=== PATIENT | female | born 1985 | race Caucasian/White ===

== ENCOUNTER 2019-09-25 02:06 | Emergency (ER) | payer MEDICAID, OTHER ==
[~2019-09-25] VITALS: Ht 157.5 cm; Wt 44.9 kg
--- NOTE | 2019-09-25 02:08 | NUR ---
Pt bibself c/o headache x 15 days, "small red spot on head" RR even and unalbored. VSS. MD at bedside for eval. Placed on monitor and pulse ox. VSS.
[2019-09-25] MEDS ORDERED: KETOROLAC TROMETHAMINE INJ 30 MG/ML VIAL ONE (02:29)
[2019-09-25] MEDS ORDERED: KETOROLAC TROMETHAMINE INJ 60 MG/2 ML VIAL IM ONE (02:30)
--- NOTE | 2019-09-25 02:30 | NUR ---
brought to ct
--- NOTE | 2019-09-25 02:58 | NUR ---
Patient discharged to home in stable condition. Written and verbal after care instructions given. Patient verbalizes understanding of instruction and rx. Pt denies pain. VSS.
[2019-09-25 02:59] VITALS: BP 127/72
== END 2019-09-25 03:12 | disposition home or self-care (01) ==
LOC: ER 02:12
DX: D17.0 Benign lipomatous neoplasm of skin and subcutaneous tissue of head, face and neck (principal); R51 Headache
CPT/HCPCS: 70450; 96372; 99284; J1885

== ENCOUNTER → 2019-12-21 | Emergency (ER) | payer MEDICAID ==
[~2019-12-21] VITALS: Ht 162.6 cm; Wt 45.4 kg
[~2019-12-21] MED LIST: IV NS 0.9% 1,000 ML IV ONE; IV NS 0.9% 500 ML BAG IV ONE; ONDANSETRON HCL/PF 4 MG/2 ML VIAL IV ONE; ONDANSETRON HCL/PF 4 MG/2 ML VIAL ONE
[2019-12-21 13:51] LABS: BASOPHILS % (AUTO) 0.4 % (0.0-2.0); EOSINOPHILS % (AUTO) 0.6 % (0.0-6.0); HEMATOCRIT 40 % (33-45); HEMOGLOBIN 13.8 g/dL (11.5-14.8); LYMPHOCYTES # (AUTO) 1.9 /CMM (0.8-4.8); LYMPHOCYTES % (AUTO) 32.8 % (20.0-44.0); MEAN CORPUSCULAR HGB CONC 34 g/dl (31.0-36.0); MEAN CORPUSCULAR VOLUME 88 fL (82-100); MONOCYTES # (AUTO) 0.4 /CMM (0.1-1.30); MONOCYTES % (AUTO) 6.7 % (2.0-12.0); NEUTROPHILS # (AUTO) 3.4 /CMM (1.8-8.9); NEUTROPHILS % (AUTO) 59.5 % (43.0-81.0); PLATELET COUNT (AUTO) 301 /CMM (150-450); RED BLOOD CELL COUNT(AUTO) 4.58 MIL/uL (4.0-5.2); WHITE BLOOD COUNT (AUTO) 5.8 K/uL (4.3-11.0)
--- NOTE | 2019-12-21 13:53 | NUR ---
Patient awake alert maltese speaking she on the phone with her ,obtained LAc heplock blood drawn obtained and send to lab
[2019-12-21 14:00] LABS: CALCIUM, SERUM 9.6 mg/dL (8.5-10.1); CARBON DIOXIDE 25 mmol/L (21-32); CHLORIDE 102 mmol/L (98-107); CREATININE 0.8 mg/dL (0.6-1.3); GLUCOSE 89 mg/dL (74-106); POTASSIUM 4.2 mmol/L (3.5-5.1); SODIUM SERUM 138 mmol/L (136-145); UREA NITROGEN, BLOOD 13 mg/dL (7-18)
[2019-12-21 14:10] LABS: APPEARANCE,URINE Clear (CLEAR); BILIRUBIN,URINE Negative (NEGATIVE); BLOOD, URINE Trace-intact Ery/uL (NEGATIVE); COLOR,URINE Yellow (YELLOW); KETONES,URINE 15 (NEGATIVE); LEUKOCYTE ESTERASE ,URINE Trace (NEGATIVE); NITRITE, URINE Negative (NEGATIVE); PH,URINE 7.5 (5.0-8.0); PROTEIN,URINE Negative (NEGATIVE); UGLUCOSE Negative (NEGATIVE); UROBILINOGEN,URINE 0.2 EU/dL (0.2)
--- NOTE | 2019-12-21 14:10 | NUR ---
Patient requested to removed heplock from LAC complaiof pain noted flushed with Saline remain patient would like to DC and ok to have new heplock RAC obtained
[2019-12-21 14:12] LABS: ACETAMINOPHEN < 2 ug/ml (10-30); ALANINE AMINOTRANSFERASE 24 U/L (12-78); ALBUMIN 4.3 g/dL (3.4-5.0); ALCOHOL, BLOOD < 3 mg/dL (0-0); ALKALINE PHOSPHATASE 54 U/L (46-116); ASPARTATE AMINOTRANSFERASE 20 U/L (15-37); BILIRUBIN,DIRECT 0.2 mg/dL (0.0-0.2); BILIRUBIN,TOTAL 0.6 mg/dL (0.2-1.0); SALICYLATE 0.6 mg/dL (2.8-20.0); TOTAL PROTEIN, SERUM 8.3 g/dL (6.4-8.2)
--- NOTE | 2019-12-21 14:13 | NUR ---
Patient able to ambulated to bathroom and urine obtained and send to lab
[2019-12-21 14:18] LABS: BACTERIA,URINE Few /HPF (None Seen); SQUAMOUS EPITHELIAL CELL,UR Few /HPF (None Seen)
[2019-12-21 14:20] LABS: SERUM AMMONIA < 10 umol/L (11-32)
[2019-12-21 15:31] VITALS: BP 107/59
--- NOTE | 2019-12-21 15:42 | NUR ---
Patient is awake alert no nausea @ thistime noted RAC IV fluids infusing well ,Dc home instruction given agrees to follow up PMD in 1 day verbalized understanding
--- NOTE | 2019-12-21 16:02 | NUR ---
Patient discharged to home in stable condition. Written and verbal after care instructions given. Patient verbalizes understanding of instruction.
--- NOTE | 2019-12-21 16:03 | NUR ---
Patient Heplock RAC removed noted cath intact ,no edema, no pain .
== END | disposition home or self-care (01) ==
LOC: ER 13:25
DX: R10.9 Unspecified abdominal pain (principal); R11.0 Nausea; R19.7 Diarrhea, unspecified; R53.83 Other fatigue; R00.2 Palpitations; I45.10 Unspecified right bundle-branch block
CPT/HCPCS: 36415; 71045; 80048; 80076; 80305; 80307; 80329; 81001; 82140; 84484; 84703; 85025; 93005; 96361; 96374; 99285; G0480; J2405; J7030 ×2; 81000-TC

== ENCOUNTER 2019-12-23 12:32 | Emergency (ER) | payer MEDICAID ==
[~2019-12-23] VITALS: Ht 152.4 cm; Wt 54.4 kg
[2019-12-23] MEDS ORDERED: ONDANSETRON HCL/PF 4 MG/2 ML VIAL ONE (12:59)
[2019-12-23] MEDS ORDERED: MORPHINE SULFATE INJ 4 MG/ML DISP.SYRIN ONE (12:59)
[2019-12-23] MEDS ORDERED: ONDANSETRON HCL/PF 4 MG/2 ML VIAL IVP ONE (13:00)
[2019-12-23] MEDS ORDERED: MORPHINE SULFATE INJ 2 MG/ML DISP.SYRIN IV ONE (13:00)
[2019-12-23 13:11] LABS: BASOPHILS % (AUTO) 0.3 % (0.0-2.0); EOSINOPHILS % (AUTO) 0.4 % (0.0-6.0); HEMATOCRIT 39 % (33-45); LYMPHOCYTES # (AUTO) 1.7 /CMM (0.8-4.8); LYMPHOCYTES % (AUTO) 22.1 % (20.0-44.0); MEAN CORPUSCULAR HGB CONC 34 g/dl (31.0-36.0); MEAN CORPUSCULAR VOLUME 90 fL (82-100); MONOCYTES # (AUTO) 0.5 /CMM (0.1-1.30); NEUTROPHILS # (AUTO) 5.5 /CMM (1.8-8.9); NEUTROPHILS % (AUTO) 71.2 % (43.0-81.0); PLATELET COUNT (AUTO) 290 /CMM (150-450); WHITE BLOOD COUNT (AUTO) 7.7 K/uL (4.3-11.0)
[2019-12-23 13:16] LABS: CALCIUM, SERUM 9.2 mg/dL (8.5-10.1); CREATININE 0.8 mg/dL (0.6-1.3); POTASSIUM 3.6 mmol/L (3.5-5.1)
[2019-12-23 13:16] LABS: APPEARANCE,URINE Clear (CLEAR); BILIRUBIN,URINE Negative (NEGATIVE); BLOOD, URINE Negative Ery/uL (NEGATIVE); COLOR,URINE Yellow (YELLOW); KETONES,URINE 15 (NEGATIVE); LEUKOCYTE ESTERASE ,URINE Negative (NEGATIVE); NITRITE, URINE Negative (NEGATIVE); PH,URINE 7.5 (5.0-8.0); PROTEIN,URINE Negative (NEGATIVE); UGLUCOSE Negative (NEGATIVE); UROBILINOGEN,URINE 0.2 EU/dL (0.2)
[2019-12-23 13:19] LABS: BACTERIA,URINE Rare /HPF (None Seen); RBC,URINE 0-2 /HPF (0-2); SQUAMOUS EPITHELIAL CELL,UR Few /HPF (None Seen); WBC,URINE 0-2 /HPF (0-3)
--- NOTE | 2019-12-23 13:21 | NUR ---
CALLED LAB RE: U-PREG AND SERUM PREG TESTS.
[2019-12-23 13:22] LABS: ALBUMIN 4.2 g/dL (3.4-5.0); BILIRUBIN,DIRECT 0.1 mg/dL (0.0-0.2); BILIRUBIN,TOTAL 0.7 mg/dL (0.2-1.0)
--- NOTE | 2019-12-23 13:30 | NUR ---
Reclining in [facility]. NO obvious distress- made aware of plan of care
[2019-12-23] MEDS ORDERED: CT SWABBABLE VALVE TRANS SET 1 EA INFUS.SET MC ONE (13:35)
[2019-12-23] MEDS ORDERED: IV NS 0.9% 250 ML IV ONE (13:35)
[2019-12-23] MEDS ORDERED: IOHEXOL-300 100 ML VIAL IV ONE (13:35)
--- NOTE | 2019-12-23 13:40 | NUR ---
MONOTYPE MECHANIC IS AT THE BEDSIDE WITH ADMIN BOOKSTORE CLERK. CT QUESTIONAIRE IN PROGRESS.
[2019-12-23 14:45] VITALS: BP 106/53
--- NOTE | 2019-12-23 14:57 | NUR ---
For discharge- Faro[place] Feather Shaper Clover utilized to reiterate ACI Patient discharged to home in stable condition. Written and verbal after care instructions given. Patient verbalizes understanding of instruction.
== END 2019-12-23 14:45 | disposition home or self-care (01) ==
LOC: ER 12:32
DX: K59.00 Constipation, unspecified (principal); R11.0 Nausea
CPT/HCPCS: 36415; 74176; 80048; 80076; 81001; 83690; 84702; 84703; 85025; 87086; 96374; 96375; 99284; J2270; J2405; J7050; Q9967; 81000-TC

== ENCOUNTER 2020-01-13 22:11 | Emergency (ER) | payer MEDICAID ==
[~2020-01-13] VITALS: Ht 157.5 cm; Wt 42.2 kg
--- NOTE | 2020-01-13 22:40 | NUR ---
PT PRESENTED TO THE ER WITH A C/O WEAKNESS X 1 MONTH, LOW TO NO APPETITE WITH NAUSEA X 1 MONTH, FEELING TIRED. PT AMBULATED TO ER #7 WITH A STEADY GAIT.
--- NOTE | 2020-01-13 22:51 | NUR ---
DR BROWN IS AT THE BEDSIDE.
--- NOTE | 2020-01-13 23:14 | NUR ---
PT'S WAS ASKED TO COME IN TO TRANSLATE FOR DR BROWN.
[2020-01-13] MEDS ORDERED: IV D5/ 0.9% NACL 1,000 ML IV ONE (23:23)
[2020-01-13 23:37] LABS: BASOPHILS % (AUTO) 0.3 % (0.0-2.0); EOSINOPHILS % (AUTO) 0.3 % (0.0-6.0); HEMATOCRIT 38 % (33-45); LYMPHOCYTES % (AUTO) 21.8 % (20.0-44.0); MEAN CORPUSCULAR HGB CONC 34 g/dl (31.0-36.0); MEAN CORPUSCULAR VOLUME 89 fL (82-100); MONOCYTES # (AUTO) 0.6 /CMM (0.1-1.30); MONOCYTES % (AUTO) 6.9 % (2.0-12.0); NEUTROPHILS # (AUTO) 6.4 /CMM (1.8-8.9); NEUTROPHILS % (AUTO) 70.7 % (43.0-81.0); PLATELET COUNT (AUTO) 269 /CMM (150-450); RED BLOOD CELL COUNT(AUTO) 4.31 MIL/uL (4.0-5.2); WHITE BLOOD COUNT (AUTO) 9.1 K/uL (4.3-11.0)
[2020-01-13 23:49] LABS: CALCIUM, SERUM 9.5 mg/dL (8.5-10.1); CREATININE 0.7 mg/dL (0.6-1.3)
[2020-01-13 23:56] LABS: ALBUMIN 4.4 g/dL (3.4-5.0); BILIRUBIN,DIRECT 0.1 mg/dL (0.0-0.2); BILIRUBIN,TOTAL 0.5 mg/dL (0.2-1.0); TOTAL PROTEIN, SERUM 7.9 g/dL (6.4-8.2)
--- NOTE | 2020-01-14 00:20 | NUR ---
PT STATED THAT SHE IS FEELING A LITTLE BETTER.
[2020-01-14 00:47] VITALS: BP 106/55
--- NOTE | 2020-01-14 00:47 | NUR ---
IV removed. Catheter intact and site benign. Pressure and 4x4 applied to site. No bleeding noted. Patient discharged to home in stable condition. Written and verbal after care instructions given. Patient verbalizes understanding of instruction AND RX. PT AMBULATED OUT WITH A STEADY GAIT. PT'S MASON IS DRIVING PT HOME. VSS.
== END 2020-01-14 00:48 | disposition home or self-care (01) ==
LOC: ER 22:11
DX: R53.1 Weakness (principal); E86.0 Dehydration
CPT/HCPCS: 36415; 80048; 80076; 83690; 85025; 96360; 99283; J7042

== ENCOUNTER 2020-01-19 20:13 | Emergency (ER) | payer MEDICAID ==
[~2020-01-19] VITALS: Ht 157.5 cm; Wt 40.8 kg
[2020-01-19 20:29] VITALS: BP 97/69
[2020-01-19] MEDS ORDERED: DICYCLOMINE HCL 10 MG CAPSULE PO ONE ×2 (20:58→21:00)
--- NOTE | 2020-01-19 21:02 | NUR ---
Patient discharged to home in stable condition. Written and verbal after care instructions given. Patient verbalizes understanding of instruction. Pt ambulatory with a steady gait
== END 2020-01-19 21:04 | disposition home or self-care (01) ==
LOC: ER 20:15
DX: R10.84 Generalized abdominal pain (principal); F41.9 Anxiety disorder, unspecified; R11.0 Nausea; R53.1 Weakness; R64 Cachexia; Z68.1 Body mass index [BMI] 19.9 or less, adult; Z98.890 Other specified postprocedural states

== ENCOUNTER 2020-10-25 13:42 | Emergency (ER) | payer MEDICAID ==
[~2020-10-25] VITALS: Ht 157.5 cm; Wt 49.9 kg
[2020-10-25 14:02] VITALS: BP 115/69
[2020-10-25] MEDS ORDERED: IBUP-1957 PO (14:18)
--- NOTE | 2020-10-25 14:32 | NUR ---
Patient discharged to home in stable condition. Written and verbal after care instructions given. Patient verbalizes understanding of instruction.
== END 2020-10-25 14:33 | disposition home or self-care (01) ==
LOC: ER 13:42
DX: R59.0 Localized enlarged lymph nodes (principal); Z98.890 Other specified postprocedural states

== ENCOUNTER 2021-11-01 11:21 | Emergency (ER) | payer MEDICAID ==
[~2021-11-01] VITALS: Ht 157.5 cm; Wt 46.3 kg
[~2021-11-01 11:21] MED LIST changes: +IBUP-1957 PO; -IV NS 0.9% 1,000 ML IV ONE; -IV NS 0.9% 500 ML BAG IV ONE; -ONDANSETRON HCL/PF 4 MG/2 ML VIAL IV ONE; -ONDANSETRON HCL/PF 4 MG/2 ML VIAL ONE
--- NOTE | 2021-11-01 12:00 | NUR ---
BIBSELF C/O ABDOMINAL PAIN RADIATING TO BACK SINCE YESTERDAY. AMBULATORY, [id number]. IN PAIN 01/06
--- NOTE | 2021-11-01 12:01 | NUR ---
ON BED SIDE
--- NOTE | 2021-11-01 12:15 | NUR ---
URINE SAMPLE SENT TO LAB
[2021-11-01] MEDS ORDERED: ONDANSETRON HCL/PF 4 MG/2 ML VIAL IVP ONE (12:30)
[2021-11-01] MEDS ORDERED: IV NS 0.9% 500 ML BAG IV ONE (12:30)
--- NOTE | 2021-11-01 12:34 | NUR ---
BLOOD DRAWN AND SENT TO LAB.
[2021-11-01] MEDS ORDERED: ONDANSETRON HCL/PF 4 MG/2 ML VIAL ONE (12:37)
[2021-11-01 12:41] LABS: BASOPHILS % (AUTO) 0.3 % (0.0-2.0); EOSINOPHILS % (AUTO) 1.3 % (0.0-6.0); HEMATOCRIT 37 % (33-45); HEMOGLOBIN 12.5 g/dL (11.5-14.8); LYMPHOCYTES # (AUTO) 1.3 K/uL (0.8-4.8); MEAN CORPUSCULAR HGB CONC 34 g/dl (31.0-36.0); MEAN CORPUSCULAR VOLUME 88 fL (82-100); MONOCYTES # (AUTO) 0.5 K/uL (0.1-1.30); MONOCYTES % (AUTO) 9.3 % (2.0-12.0); NEUTROPHILS # (AUTO) 3.4 K/uL (1.8-8.9); NEUTROPHILS % (AUTO) 64.1 % (43.0-81.0); PLATELET COUNT (AUTO) 263 K/uL (150-450); RED BLOOD CELL COUNT(AUTO) 4.28 MIL/uL (4.0-5.2); WHITE BLOOD COUNT (AUTO) 5.3 K/uL (4.3-11.0)
--- NOTE | 2021-11-01 12:50 | NUR ---
U/S TECH. AT BED SIDE
[2021-11-01] MEDS ORDERED: LIDOCAINE VISCOUS 2% UD 15 ML UDC MM ONE (13:30)
[2021-11-01] MEDS ORDERED: MAG HYDROX/AL HYDROX/SIMETH 30 ML UDC PO ONE (13:30)
[2021-11-01] MEDS ORDERED: LIDOCAINE VISCOUS 2% UD 15 ML UDC ONE (13:47)
[2021-11-01] MEDS ORDERED: MAG HYDROX/AL HYDROX/SIMETH 30 ML UDC ONE (13:47)
[2021-11-01 14:27] LABS: ALBUMIN 3.7 g/dL (3.4-5.0); BILIRUBIN,DIRECT 0.1 mg/dL (0.0-0.2); BILIRUBIN,TOTAL 0.3 mg/dL (0.2-1.0); CALCIUM, SERUM 9.3 mg/dL (8.5-10.1); CREATININE 0.6 mg/dL (0.6-1.3); TOTAL PROTEIN, SERUM 7.5 g/dL (6.4-8.2)
[2021-11-01] MEDS ORDERED: ONDANSETRON HCL/PF 4 MG/2 ML VIAL IV ONE (14:30)
[2021-11-01] MEDS ORDERED: OMEP20CA15 PO (15:02)
[2021-11-01 15:23] VITALS: BP 121/78
--- NOTE | 2021-11-01 15:23 | NUR ---
Patient discharged to home in stable condition. Written and verbal after care instructions given. Patient verbalizes understanding of instruction. IV removed. Catheter intact and site benign. Pressure and 4x4 applied to site. No bleeding noted.
== END 2021-11-01 15:20 | disposition home or self-care (01) ==
LOC: ER 11:30
DX: K29.70 Gastritis, unspecified, without bleeding (principal); Z79.1 Long term (current) use of non-steroidal anti-inflammatories (NSAID); Z79.899 Other long term (current) drug therapy
CPT/HCPCS: 36415; 76705; 80048; 80076; 83690; 84703; 85025; 96374; 99284; J2405

== ENCOUNTER 2022-05-06 20:03 | Emergency (ER) | payer MEDICAID ==
[~2022-05-06] VITALS: Ht 157.5 cm; Wt 46.7 kg
[~2022-05-06 20:03] MED LIST changes: +OMEP20CA15 PO
[2022-05-06 20:16] VITALS: BP 124/70
--- NOTE | 2022-05-06 20:20 | NUR ---
TO ER BED 16. BIBSELF C/O TAMPON STUCK X 30 MINS AGO. PT DENIES ANY PAIN AT THIS TIME. RR EVEN AND NON LABORED. PT CHANGED INTO GOWMN. CONNECTED TO MONITOR. AWAITING MD LUKE
--- NOTE | 2022-05-06 20:30 | NUR ---
CHAPERONED DR DENG DURING PELVIC EXAMINATION
--- NOTE | 2022-05-06 21:25 | NUR ---
WEIVER SIGNED BY PT
--- NOTE | 2022-05-06 21:30 | NUR ---
PT TAKEN TO CT SCAN VIA [facility]
--- NOTE | 2022-05-06 21:49 | NUR ---
PT RETURNED FROM CT SCAN W/O INCIDENT, RECONNECTED TO MONITOR
--- NOTE | 2022-05-06 22:55 | NUR ---
Patient discharged to home in stable condition. Written and verbal after care instructions given. Patient verbalizes understanding of instruction.
== END 2022-05-06 22:56 | disposition home or self-care (01) ==
LOC: ER 20:07
DX: T19.2XXA Foreign body in vulva and vagina, initial encounter (principal); Z79.899 Other long term (current) drug therapy; X58.XXXA Exposure to other specified factors, initial encounter; Y93.89 Activity, other specified; Y92.89 Other specified places as the place of occurrence of the external cause; Y99.8 Other external cause status

== ENCOUNTER 2024-03-02 18:02 | Emergency (ER) | payer MEDICAID ==
[~2024-03-02] VITALS: Ht 157.5 cm; Wt 46.3 kg
[2024-03-02 18:02] VITALS: BP 109/74; TEMP 98.2
[2024-03-02] MEDS ORDERED: IBUPROFEN 600 MG TABLET ONE (18:20)
[2024-03-02] MEDS ORDERED: IBUP-1953 PO (18:36)
[2024-03-02 18:45] VITALS: O2SAT 98
== END 2024-03-02 18:50 | disposition home or self-care (01) ==
LOC: ER 18:02
DX: Q18.1 Preauricular sinus and cyst (principal); Z79.1 Long term (current) use of non-steroidal anti-inflammatories (NSAID); Z98.890 Other specified postprocedural states; Z79.899 Other long term (current) drug therapy

== ENCOUNTER 2024-08-15 01:17 | Emergency (ER) | payer MEDICAID ==
[~2024-08-15 01:17] MED LIST changes: +IBUP-1953 PO
== END 2024-08-15 03:23 | disposition left against medical advice (07) ==
LOC: ER 01:29
DX: R10.9 Unspecified abdominal pain (principal); Z53.21 Procedure and treatment not carried out due to patient leaving prior to being seen by health care provider

== ENCOUNTER 2025-07-20 11:04 | Emergency (ER) | payer MEDICAID ==
[~2025-07-20] VITALS: Ht 157.5 cm; Wt 45.4 kg
[2025-07-20 11:13] VITALS: TEMP 98.3
[2025-07-20] MEDS ORDERED: dexaMETHasone SOD PHOSPHATE 1 ML ONE (11:35)
[2025-07-20] MEDS ORDERED: KETOROLAC TROMETHAMINE 15 MG/ML VIAL ONE (11:35)
[2025-07-20] MEDS: IV NS 0.9% 1,000 ML BAG IV ONE (11:45)
[2025-07-20 11:51] LABS: PLATELET COUNT (AUTO) 347 K/uL (150-450); RED BLOOD CELL COUNT(AUTO) 4.65 MIL/uL (4.0-5.2); RED CELL DISTRIBUTION WIDTH 18.1 % (11.5-15.0); WHITE BLOOD COUNT (AUTO) 4.5 K/uL (4.3-11.0)
[2025-07-20] MEDS: KETOROLAC TROMETHAMINE 15 MG/ML VIAL IV ONE (11:55)
[2025-07-20] MEDS: dexaMETHasone SOD PHOSPHATE 10 MG/ML VIAL IV ONE (11:57)
[2025-07-20] MEDS ORDERED: PROCHLORPERAZINE EDISYLATE 10 MG/2 ML VIAL ONE (12:07)
[2025-07-20] MEDS: PROCHLORPERAZINE EDISYLATE 10 MG/2 ML VIAL IVP ONE (12:12)
[2025-07-20 12:15] LABS: ALCOHOL, BLOOD < 3 mg/dL (0-10); ASPARTATE AMINOTRANSFERASE 37 U/L (15-37); CALCIUM, SERUM 9.2 mg/dL (8.5-10.1); CREATININE 0.6 mg/dL (0.6-1.3); SODIUM SERUM 140 mmol/L (136-145); TOTAL PROTEIN, SERUM 7.9 g/dL (6.4-8.2); UREA NITROGEN, BLOOD 15 mg/dL (7-18)
[2025-07-20 13:15] LABS: APPEARANCE,URINE SLIGHTLY CLOUDY (CLEAR); BLOOD, URINE NEGATIVE Ery/uL (NEGATIVE); LEUKOCYTE ESTERASE ,URINE 1+ (NEGATIVE); NITRITE, URINE NEGATIVE (NEGATIVE); UGLUCOSE NEGATIVE (NEGATIVE)
[2025-07-20 13:17] LABS: PREGNANCY TEST URINE QUAL NEGATIVE (NEGATIVE)
[2025-07-20 13:38] LABS: ADD URINE CULTURE YES
[2025-07-20] MEDS ORDERED: PROC-11 PO (13:44)
[2025-07-20] MEDS ORDERED: KETO10TA2 PO (13:44)
[2025-07-20] MEDS ORDERED: NITR100C6 PO (13:44)
[2025-07-20 13:52] LABS: AMPHETAMINE, URINE NEGATIVE (NEGATIVE); BARBITURATE, URINE NEGATIVE (NEGATIVE); BENZODIAZEPINE, URINE NEGATIVE (NEGATIVE); CANNABINOID, URINE NEGATIVE (NEGATIVE); COCCAINE, URINE NEGATIVE (NEGATIVE); OPIATE, URINE NEGATIVE (NEGATIVE)
[2025-07-20 13:53] VITALS: BP 118/81; O2SAT 100
== END 2025-07-20 13:53 | disposition home or self-care (01) ==
LOC: ER 11:14
DX: N39.0 Urinary tract infection, site not specified (principal); G43.909 Migraine, unspecified, not intractable, without status migrainosus; Z79.1 Long term (current) use of non-steroidal anti-inflammatories (NSAID); Z79.899 Other long term (current) drug therapy
CPT/HCPCS: 99285; 96374; 96361; 96375; 93005; 71045; 70450; 85025; 80048; 80076; 84703; 81001; 36415; 84484; 80143; 80320; 80307; J0780; J1100; J7030; J1885; 87086-TC; G0480